=== PATIENT | male | born 1975 | race Caucasian/White ===

== ENCOUNTER → 2018-02-15 | Outpatient (CLI) | payer BC, OTHER ==
[~2018-02-15] MED LIST: CATHETER FLUSH 10 ML SYR IV PRN; FUROSEMIDE 40 MG/4 ML INJ (LASIX) IVP ONE
--- NOTE | 2018-02-15 10:54 | Diagnostic Imaging Report ---
INDICATION: Questionable right-sided urinary tract obstruction. TECHNIQUE: Patient was administered 5.5 mCi technetium 99m MAG3 and imaging of the abdomen was performed. At 15 minutes, the patient was administered 40 mg of Lasix intravenously and imaging was performed. COMPARISON: No prior studies are available for comparison. FINDINGS: Dynamic flow images demonstrate fairly symmetric perfusion to both kidneys. There is normal renal tubular uptake bilaterally. There appears to be fairly symmetric excretion of activity into bilateral renal collecting systems. Prompt passage of activity into the left ureter and bladder is noted. There is some delayed activity within the right ureter. There is accumulation of activity within the right renal pelvis which appears to be moderately dilated. Left ureteral activity is visualized at approximately 7 minutes. The right ureter was visualized at approximately 16 minutes. This was in response to Lasix administration. The renogram curve for the left kidney is normal. There is some flattening of the right renogram curve however this did improve after Lasix administration. Overall differential renal function is 59% on the left and 41% on the right. IMPRESSION: 1. Unremarkable left kidney. 2. Findings consistent with moderately dilated right renal collecting system and renal pelvis, but no evidence of complete obstruction. There was response to Lasix administration with excretion of activity into the right ureter. Dictated by: Dictated on workstation # [id number]
== END ==
LOC: CARD 08:53
PROVIDERS: ATTEND Urology
DX: N13.5 Crossing vessel and stricture of ureter without hydronephrosis (principal)
CPT/HCPCS: 78708

== ENCOUNTER → 2018-02-19 | Outpatient (CLI) | payer BC ==
[~2018-02-19] MED LIST changes: -CATHETER FLUSH 10 ML SYR IV PRN; -FUROSEMIDE 40 MG/4 ML INJ (LASIX) IVP ONE; +HYDR-3870 PO; +LEVO100T7 PO; +LEVO500T2 PO; +NF-ESOM40C PO; +PHEN-640 PO
== END ==
LOC: PREOP 05:40
PROVIDERS: ATTEND Urology
DX: Z01.818 Encounter for other preprocedural examination (principal); N13.5 Crossing vessel and stricture of ureter without hydronephrosis

== ENCOUNTER 2018-02-20 07:56 | Day surgery (SDC) | payer BC ==
[~2018-02-20] VITALS: Ht 177.8 cm; Wt 63.5 kg
--- NOTE | 2018-02-20 07:14 | Progress Note-Pre Operative ---
Pre-Operative Progress Note H&P Reviewed The H&P was reviewed, patient examined and no changes noted. Date Seen by Provider: Feb 20, 2018 Time Seen by Provider: 07:13 Date H&P Reviewed: Feb 20, 2018 Time H&P Reviewed: 09:00 Pre-Operative Diagnosis: RT UPJ OBSTRUCTION TIMOTHY COELLO MD Feb 20, 2018 7:14 am
--- NOTE | 2018-02-20 07:15 | Progress Note-Post Operative ---
Post-Operative Progess Note Surgeon (s)/Curator Of Photography And Prints (s) Surgeon TIMOTHY COELLO MD Curator Of Photography And Prints: N/A Pre-Operative Diagnosis RT UPJ OBSTRUCTION Post-Operative Diagnosis SAME MULTIPLE URETHRAL STRICTURES Procedure & Operative Findings Date of Procedure 02/20/18 Procedure Performed/Findings CYSTOSCOPY, FILIFORM AND FOLLOWERS DILATATION OF STRICTURES AND INSERTION OF GOODWIN CATHETER FOR MEATAL, SUB-MEATAL AND PROXIMAL URETHRAL STRICTURES Anesthesia Type GENERAL Estimated Blood Loss Estimated blood loss (mL): N/A Specimens/Packing Specimens Removed N/A Packing: N/A TIMOTHY COELLO MD Feb 20, 2018 7:15 am
--- NOTE | 2018-02-20 07:16 | Discharge Inst-Urology ---
Discharge Inst-Urology Discharge Medications New, Converted, or Re-newed RX: RX on Chart Patient Instructions/Follow Up Plan Discharge with massey and leg bag day time and large bag night time with instructions. Patient to come to office tomorrow 10am to change massey Increase oral fluids for 48 hours and then as needed. Diet and Activity as tolerated. If questions or concerns contact your physician Or seek help at emergency department. TIMOTHY COELLO MD Feb 20, 2018 7:16 am
[2018-02-20 08:00] VITALS: BP 119/79
[2018-02-20] MEDS ORDERED: cefTRIAXone 1 GM/NS 100 ML IVPB IV ONE ×2 (08:30)
[2018-02-20] MEDS ORDERED: CATHETER FLUSH 10 ML SYR IV PRN (08:30)
[2018-02-20] MEDS ORDERED: fentaNYL INJECTION 100 MCG/2 ML AMP ONE (08:35)
[2018-02-20] MEDS ORDERED: proPOfol 200 MG/20 ML (DIPRIVAN) VIAL IV ONE (08:35)
[2018-02-20] MEDS ORDERED: SEVOFLURANE (ULTANE) 15 ML INHAL SOLN ONE ×2 (08:35→09:33)
[2018-02-20] MEDS ORDERED: ONDANSETRON 4 MG/2 ML (SDV) Z0FRAN ONE (08:35)
[2018-02-20] MEDS ORDERED: LIDOCAINE PF 2% 5 ML (XYLOCAINE) VIAL ONE (08:35)
[2018-02-20] MEDS ORDERED: MIDAZOLAM 2 MG/2 ML (VERSED) VIAL ONE (08:36)
[2018-02-20] MEDS: LACTATED RINGERS 1,000 ML IV PRN ×2 (08:51→09:30)
[2018-02-20] MEDS ORDERED: NF-ESOM40C PO (09:08)
[2018-02-20] MEDS ORDERED: LEVO100T7 PO (09:08)
[2018-02-20] MEDS ORDERED: DEXAMETHASONE 10 MG/ML (DECADRON) 1 ML VIAL ONE (09:15)
[2018-02-20] MEDS ORDERED: ONDANSETRON 4 MG/2 ML (SDV) Z0FRAN IVP PRN (10:15)
[2018-02-20] MEDS ORDERED: HYDROmorphone (DILAUDID) 2 MG/ML VIAL IVP PRN (10:15)
[2018-02-20] MEDS ORDERED: morphine INJ 10 MG/ML 1ML (SYR OR VIAL) IVP PRN (10:15)
[2018-02-20 10:55] VITALS: BP 110/75
[2018-02-20 11:25] VITALS: BP 111/72
[2018-02-20 12:15] VITALS: BP 112/72
[2018-02-20] MEDS ORDERED: PHEN-640 PO (12:18)
[2018-02-20] MEDS ORDERED: HYDR-3870 PO (12:29)
[2018-02-20] MEDS ORDERED: LEVO500T2 PO (12:29)
[2018-02-20] MEDS ORDERED: PHENAZOPYRIDINE 100 MG (PYRIDIUM) TABLET PO ONE (12:30)
[2018-02-20 13:43] VITALS: BP 112/72
--- NOTE | 2018-02-20 13:58 | Anesthesia-General Post-Op ---
General Patient Condition Mental Status/LOC: Same as Preop Cardiovascular: Satisfactory Nausea/Vomiting: Absent Respiratory: Satisfactory Pain: Controlled Complications: Absent Post Op Complications Complications None Follow Up Care/Instructions Patient Instructions None needed. Anesthesia/Patient Condition Patient Condition Patient is doing well, no complaints, stable vital signs, no apparent adverse anesthesia problems. No complications reported per nursing. D/C home per [facility] Criteria: Yes JOLANTA HEAD CRNA Feb 20, 2018 13:58
--- NOTE | 2018-02-20 14:01 | OPERATIVE REPORT ---
DATE OF SERVICE: 02/20/2018 PREOPERATIVE DIAGNOSIS: Right UPJ obstruction. POSTOPERATIVE DIAGNOSES: 1. Right UPJ obstruction 2. Meatal, submeatal and proximal urethral strictures. OPERATION PERFORMED: Cystoscopy and filiform followers, urethral dilatation of strictures and insertion of Allan catheter. SURGEON: Merrick Coello MD ANESTHESIA: General. COMPLICATIONS: None. PROCEDURE: Under satisfactory general anesthesia, the patient in lithotomy position, genitalia were prepped and draped in the usual sterile fashion. A 23-Monegasque cystoscope was introduced under vision. There was a meatal stenosis that responded to the scope; however, there was a submeatal stricture that I could not bypass with the scope. I tried a 17-Monegasque, no luck. I passed a 6-Monegasque filiform into the bladder and dilated with followers. I was able to go only through 18-Monegasque. I felt also a more proximal urethral stricture beside the first two as mentioned above. I removed the filiform followers. I was able to insert a 16-Monegasque coude catheter, inflated the balloon and connected to dependent drainage. There was minimal bleeding. The patient tolerated the procedure and anesthesia well, was sent to recovery room in stable condition. PLAN: We will perform soft dilatation. He will come to my office starting tomorrow every day and change the catheter to a bigger size. Once we achieve that, then we can bring him back into the planned procedure of retrograde and possible stenting. This was fully explained to his , later on to him. Job ID: [id number] DocumentID: [id number] Dictated Date: 02/20/2018 10:07:12 Educational Director Date: 02/20/2018 13:15:34 Dictated By: MERRICK COELLO MD
== END 2018-02-20 13:43 | disposition home or self-care (01) ==
LOC: SDC 07:56
PROVIDERS: ATTEND Urology
DX: N35.9 Urethral stricture, unspecified (principal); N13.5 Crossing vessel and stricture of ureter without hydronephrosis; N40.0 Benign prostatic hyperplasia without lower urinary tract symptoms; E29.1 Testicular hypofunction; E03.9 Hypothyroidism, unspecified; K21.9 Gastro-esophageal reflux disease without esophagitis; F90.9 Attention-deficit hyperactivity disorder, unspecified type; Z79.899 Other long term (current) drug therapy
CPT/HCPCS: 87081

== ENCOUNTER → 2018-02-27 | Outpatient (CLI) | payer BC | LOC: PREOP 05:32 | PROVIDERS: ATTEND Urology | DX: Z01.818 Encounter for other preprocedural examination (principal); N13.5 Crossing vessel and stricture of ureter without hydronephrosis ==

== ENCOUNTER 2018-02-28 06:28 | Day surgery (SDC) | payer BC ==
[~2018-02-28] VITALS: Ht 177.8 cm; Wt 63.5 kg
[2018-02-28] MEDS ORDERED: LACTATED RINGERS 1,000 ML IV PRN (06:45)
[2018-02-28] MEDS ORDERED: MIDAZOLAM 2 MG/2 ML (VERSED) VIAL ONE (06:50)
[2018-02-28] MEDS ORDERED: LIDOCAINE PF 2% 5 ML (XYLOCAINE) VIAL ONE (06:50)
[2018-02-28] MEDS ORDERED: ONDANSETRON 4 MG/2 ML (SDV) Z0FRAN ONE ×2 (06:50→11:01)
[2018-02-28] MEDS ORDERED: DEXAMETHASONE 10 MG/ML (DECADRON) 1 ML VIAL ONE (06:50)
[2018-02-28] MEDS ORDERED: SEVOFLURANE (ULTANE) 15 ML INHAL SOLN ONE ×3 (06:50→07:33)
[2018-02-28] MEDS ORDERED: fentaNYL INJECTION 100 MCG/2 ML AMP ONE (06:50)
[2018-02-28] MEDS ORDERED: proPOfol 200 MG/20 ML (DIPRIVAN) VIAL IV ONE (06:50)
--- NOTE | 2018-02-28 07:08 | Progress Note-Pre Operative ---
Pre-Operative Progress Note H&P Reviewed The H&P was reviewed, patient examined and no changes noted. Date Seen by Provider: Feb 28, 2018 Time Seen by Provider: 07:07 Date H&P Reviewed: Feb 28, 2018 Time H&P Reviewed: 07:07 Pre-Operative Diagnosis: RT UPJ OBSTRUCTION TIMOTHY COELLO MD Feb 28, 2018 7:07 am
[2018-02-28] MEDS ORDERED: cefTRIAXone 1 GM/NS 100 ML IVPB IV ONE ×2 (07:15)
[2018-02-28 07:27] VITALS: BP 106/76
[2018-02-28] MEDS ORDERED: NEOSPORIN + PAIN RELIEF CREAM 15 GM ONE (08:53)
--- NOTE | 2018-02-28 09:13 | Progress Note-Post Operative ---
Post-Operative Progess Note Surgeon (s)/Shell Mold Bonder (s) Surgeon TIMOTHY COELLO MD Shell Mold Bonder: N/A Pre-Operative Diagnosis RT UPJ OBSTRUCTION Post-Operative Diagnosis RT UPJ OBSTRUCTION, RECURRENT MEATAL STENOSIS AND URETHRAL STRICTURE Procedure & Operative Findings Date of Procedure 02/28/18 Procedure Performed/Findings URETHRAL DILATATION, CYSTOSCOPY, RT RETROGRADE UROGRAM AND MEATOTOMY Anesthesia Type GENERAL Estimated Blood Loss Estimated blood loss (mL): N/A Specimens/Packing Specimens Removed N/A Packing: N/A TIMOTHY COELLO MD Feb 28, 2018 9:13 am
[2018-02-28] MEDS ORDERED: ONDANSETRON 4 MG/2 ML (SDV) Z0FRAN IVP PRN (09:15)
--- NOTE | 2018-02-28 09:15 | Discharge Inst-Urology ---
Discharge Inst-Urology Discharge Medications New, Converted, or Re-newed RX: RX given to Patient/Fam Patient Instructions/Follow Up Plan Please make appointment to been seen in office in 4 weeks. Neosporin+pain ointment to meatus tid for 7 days Increase oral fluids for 48 hours and then as needed. Diet and Activity as tolerated. If questions or concerns contact your physician Or seek help at emergency department. TIMOTHY COELLO MD Feb 28, 2018 9:15 am
[2018-02-28] MEDS: morphine INJ 10 MG/ML 1ML (SYR OR VIAL) IVP PRN ×2 (09:33→09:37)
--- NOTE | 2018-02-28 09:41 | Diagnostic Imaging Report ---
EXAMINATION: Fluoroscopy. INDICATION: Retrograde Fluoroscopic assistance was provided for Dr. Penaloza. 65.4 seconds of fluoroscopy time was utilized. A single spot film was received from the or. The film was not marked right or left. The renal scan performed on 02/15/2018 suggested a moderately dilated right renal pelvis. On the spot film of this exam there is partial opacification of the ureter and the renal pelvis. The ureteropelvic junction was not well visualized however. IMPRESSION: 1. Fluoroscopic assistance was provided for Dr. Penaloza. 2. There is partial opacification of the pelvicalyceal system and the ureter but the ureteropelvic junction is not well visualized. Dictated by: Dictated on workstation # [id number]
[2018-02-28 09:55] VITALS: BP 96/65
[2018-02-28 10:25] VITALS: BP 115/76
[2018-02-28 10:55] VITALS: BP 118/74
[2018-02-28 12:20] VITALS: BP 118/74
--- NOTE | 2018-02-28 12:47 | OPERATIVE REPORT ---
DATE OF SERVICE: 02/28/2018 PREOPERATIVE DIAGNOSIS: Right ureteropelvic junction obstruction. POSTOPERATIVE DIAGNOSES: 1. Right ureteropelvic junction obstruction. 2. Recurrent meatal stenosis and anterior urethral stricture. SURGEON: Merrick Coello MD ANESTHESIA: General. COMPLICATIONS: None. OPERATION PERFORMED: Urethral dilatation, cystoscopy, right retrograde urogram and meatotomy. DESCRIPTION OF PROCEDURE: Under satisfactory general anesthesia and the patient laid in lithotomy position, genitalia were prepped and draped in usual sterile fashion. I attempted to pass a 21-South African cystoscope met resistance at the meatus secondary to recurrent meatal stenosis. I went ahead and dilated the meatus to #28 South African to pass the 21-South African cystoscope. The anterior urethral stricture that was present before was kind of healing and admitted the 21-South African cystoscope. The prostate was not obstructing. Bladder neck was opened. The bladder revealed trabeculation of the [place]. Ureteral ORIFICES normal with clear effluxes. No foreign body, bladder tumor or stone visualized. Using the fore oblique lens, I passed a 5-South African ureteral catheter into the right ureteral orifice and injected contrast. The ureter was normal. There was a narrowing at the UPJ; however, not significant because not only the ureter was emptying, but contrast was flowing from the renal pelvis into the ureter with moderate emptying of the renal system. For this reason, I elected not to leave a stent. I emptied the bladder, removed the cystoscope since this is a recurrent meatal stenosis with a short period of time, I elected to do a meatotomy so I opened the meatus ventrally and then put few sutures of 4-0 chromic to keep the mucosa open and prevent recurrence hopefully. Neosporin plus pain ointment was applied. The patient tolerated the procedure and anesthesia well and was sent to recovery room in stable condition. PLAN: For the meatal stenosis, we will watch and make sure there is no recurrence. For the urethral stricture if the meatal heals properly and the patient started complaining again of voiding issues, we will do a retrograde urethrogram and manage accordingly. For the UPJ obstruction, we will watch that. Follow up with nuclear scan on a yearly basis to make sure that this is not deteriorating. I also told his and the patient later on that we can also get a second opinion either at or any institution they like to. Job ID: [id number] DocumentID: [id number] Dictated Date: 02/28/2018 09:19:22 Upset Operator Date: 02/28/2018 12:46:43 Dictated By: MERRICK COELLO MD MTDD
--- NOTE | 2018-02-28 14:50 | Anesthesia-General Post-Op ---
General Patient Condition Mental Status/LOC: Same as Preop Cardiovascular: Satisfactory Nausea/Vomiting: Absent Respiratory: Satisfactory Pain: Controlled Complications: Absent Post Op Complications Complications None Follow Up Care/Instructions Patient Instructions None needed. Anesthesia/Patient Condition Patient Condition Patient is doing well, no complaints, stable vital signs, no apparent adverse anesthesia problems. No complications reported per nursing. TEGAN MONTGOMERY CRNA Feb 28, 2018 14:50
== END 2018-02-28 12:20 | disposition home or self-care (01) ==
LOC: SDC 06:28
PROVIDERS: ATTEND Urology
DX: N13.5 Crossing vessel and stricture of ureter without hydronephrosis (principal); N35.9 Urethral stricture, unspecified; N40.0 Benign prostatic hyperplasia without lower urinary tract symptoms; E03.9 Hypothyroidism, unspecified; K21.9 Gastro-esophageal reflux disease without esophagitis; Z79.899 Other long term (current) drug therapy

== ENCOUNTER → 2019-11-07 | Outpatient (CLI) | payer BC ==
--- NOTE | 2019-11-07 14:37 | Diagnostic Imaging Report ---
PROCEDURE: CT abdomen and pelvis without contrast. TECHNIQUE: Multiple contiguous axial images were obtained through the abdomen and pelvis without the use of intravenous contrast. Auto Exposure Controls were utilized during the CT exam to meet ALARA standards for radiation dose reduction. INDICATION: Right flank pain and microhematuria FINDINGS: Unenhanced images of the liver and spleen reveal no focal abnormality. There is no evidence of gallbladder, pancreatic or adrenal gland abnormality. There is no evidence of renal stone or mass on the noncontrast images. There is dilatation of the right renal collecting system and proximal right ureter. There is no evidence of ureteric stone. No free fluid is seen. There is no evidence of organized fluid collection or focal inflammation. Numerous bilateral calcified phleboliths are present in the pelvis. IMPRESSION: 1. Mild dilatation of the right renal collecting system could be related to previous obstructive uropathy. Possibility of non-calculus related stricture in the proximal right ureter is not fully excluded. 2. Otherwise, no acute abnormality is identified. Dictated by: Dictated on workstation # [id number]
== END ==
LOC: RAD 13:30
PROVIDERS: ATTEND Urology
DX: N28.89 Other specified disorders of kidney and ureter (principal); R10.9 Unspecified abdominal pain
CPT/HCPCS: 74176